=== PATIENT | female | born 1950 | race Caucasian/White ===

== ENCOUNTER 2017-01-08 11:52 | Day surgery (SDC) | payer BC ==
[2017-01-08] MEDS ORDERED: PROPOFOL 10 MG/ML VIAL IV ONE (14:00)
[2017-01-08] MEDS ORDERED: LIDOCAINE 2% MDV (20MG/ML) 20ML VIAL IV ONE (14:00)
--- NOTE | 2017-01-13 18:30 | Operative Note ---
DATE OF SURGERY: 01/08/2017 OPERATION: COLONOSCOPY with cold forceps polypectomy x3. PREOPERATIVE DIAGNOSIS: Colon cancer screening, average risk. POSTOPERATIVE DIAGNOSES: 1. Redundant colon. 2. Sigmoid colon polyps x3, status post cold forceps removal. PREPARATION QUALITY: Good. ESTIMATED BLOOD LOSS: Minimal. COMPLICATIONS: None apparent. PROCEDURE: After informed consent was obtained from the patient, she was placed in the left lateral decubitus position in the endoscopy suite, sedated and monitored by the department of anesthesia. Digital rectal exam was unremarkable. A well-lubricated [id number] colonoscope was inserted into the rectum and advanced to the ascending colon. Despite reducing looping and transabdominal pressure being applied, I was unable to intubate the cecal cap. The patient was placed in the supine position, at which point abdominal pressure was utilized and the cecal cap intubation was achieved. The preparation quality was good. The ileocecal valve, appendiceal orifice, ascending colon, transverse colon, and descending colon were free of inflammatory changes, mass lesions, or polyps. There were 3 diminutive sigmoid colon polyps identified, each removed with a cold forceps. Forward and J-turn views of the rectum and anorectum were unremarkable other than perhaps some small internal hemorrhoids. The endoscope was straightened, the rectal ampulla deflated, and the endoscope was removed. RECOMMENDATIONS: The patient should resume her medications and diet. She will require repeat exam in 5-10 years pending tissue histology. As always, thank you for allowing me to participate in the healthcare of your patients. CC: Dr. Stan MIGUEL
== END 2017-01-08 14:16 | disposition home or self-care (01) ==
LOC: HOP 11:52
PROVIDERS: ATTEND Internal Medicine Gastroenterology
DX: Z12.11 Encounter for screening for malignant neoplasm of colon (principal); K63.5 Polyp of colon; D12.5 Benign neoplasm of sigmoid colon; I10 Essential (primary) hypertension; E78.00 Pure hypercholesterolemia, unspecified; E11.9 Type 2 diabetes mellitus without complications; Z79.84 Long term (current) use of oral hypoglycemic drugs; K63.89 Other specified diseases of intestine